=== PATIENT | female | born 1965 | race Caucasian/White ===

== ENCOUNTER 2019-09-01 21:03 | Inpatient (IN) | payer OTHER ==
--- NOTE | 2019-09-01 21:28 | PDOC ---
Rapid Medical Evaluation Chief Complaint: CVA/TIA Time Seen by Provider: 09/01/19 21:08 Medical Evaluation: Allergies Allergy/AdvReac Type Severity Reaction Status Date / Time No Known Allergies Allergy Verified 08/26/14 13:17 Vital Signs Temp Pulse Resp BP Pulse Ox 98 F 100 H 20 124/82 98 09/01/19 21:13 09/01/19 21:13 09/01/19 21:13 09/01/19 21:13 09/01/19 21:13 09/01/19 21:27 I have performed a brief in-person evaluation of this patient. The patient presents with a chief complaint of:R arm weakness x 3 days. H/o HTN, HLD, DM Pertinent physical exam findings:stable I have ordered the following:CTH/labs The patient will proceed to the ED for further evaluation. Discharge Disposition - Diagnosis Arm weakness - Discharge Dispostion Last Admission D/C Date: 04/19/08 - Referrals Referrals: Ela Hernandez [Primary Care Provider] - - Patient Instructions - Post Discharge Activity
--- NOTE | 2019-09-01 21:51 | PDOC ---
History of Present Illness - General Chief Complaint: CVA/TIA Stated Complaint: R/ARM/WEAKNES/SACRAL PAIN Time Seen by Provider: 09/01/19 21:08 Past History - Medical History Allergies/Adverse Reactions: Allergies Allergy/AdvReac Type Severity Reaction Status Date / Time No Known Allergies Allergy Verified 08/26/14 13:17 Home Medications: Ambulatory Orders Lipase/Protease/Amylase [Liliana Weston 24,000 Units Capsule] 1 cap PO TID 08/26/14 Loratadine [Claritin -] 10 mg PO DAILY 08/26/14 Lubiprostone [Amitiza] 8 mcg PO BID 08/26/14 metFORMIN HCL [Metformin ER Osmotic] 1 tab PO DAILY 08/26/14 metroNIDAZOLE [Flagyl -] 250 mg PO TID 08/26/14 Anemia: No Asthma: No Cancer: No Cardiac Disorders: No CVA: No COPD: Yes (???-SOB ON EXERTION) CHF: No Dementia: No Diabetes: Yes (IDDM) GI Disorders: Yes (HIATAL HERNIA??) Disorders: No HTN: No Hypercholesterolemia: Yes Liver Disease: No Seizures: No Thyroid Disease: No - Surgical History Abdominal Surgery: No Appendectomy: No Cardiac Surgery: No Cholecystectomy: No Lung Surgery: No Neurologic Surgery: No Orthopedic Surgery: No - Psycho-Social/Smoking History Smoking History: Never smoked Have you smoked in the past 12 months: No - Substance Abuse Hx (Audit-C & DAST Scrn) How often the patient has a drink containing alcohol: Never Score: In Men: 4 or > Positive; In Women: 3 or > Positive: 0 Screen Result (Pos requires Nsg. Audit-10AR): Negative *Physical Exam - Vital Signs Last Vital Signs Temp Pulse Resp BP Pulse Ox 98 F 100 H 20 124/82 98 09/01/19 21:13 09/01/19 21:13 09/01/19 21:13 09/01/19 21:13 09/01/19 21:13 ED Treatment Course - LABORATORY CBC & Chemistry Diagram: 09/01/19 22:08 09/01/19 22:08 Medical Decision Making - Medical Decision Making 09/01/19 21:54 HPI: 53yo F hx HTN, HLD, "pressure behind eyes", and DM presents from home for 3 days of gradual onset worsening shooting forearm pain worse with movements, atraumatic, no associated neck pain, no hx similar sx. Also c/o worsening acute on chronic LBP with hx 3 herniated discs, gradual onset, worse with movement and walking, no trauma or heavy lifting. Endorses chronic headaches, L-sided, unchanged. No pain meds tried. Denies trauma, falls, heavy lifting, numbness/tingling, vision changes, urinary or stool incontinence, saddle anaesthesia, fever, chills, rash. PCP - [facility] ROS: Constitutional: Negative for chills, fever, fatigue, diaphoresis. HENT: Negative for sore throat, rhinorrhea, congestion. Eyes: Negative for visual disturbance. Respiratory: Negative for shortness of breath, cough, and wheezing. Cardiovascular: Negative for chest pain, palpitations, and leg swelling. Gastrointestinal: Negative for abdominal pain, blood in stool, constipation, diarrhea, nausea, and vomiting. Genitourinary: Negative for dysuria, flank pain, and hematuria. Musculoskeletal: Positive for RUE pain, LBP. Negative for myalgias and neck pain. Skin: Negative for rash. Neurological: Positive for headaches, RUE weakness. Negative for light- headedness, dizziness, vertigo, syncope, numbness. Psychiatric/Behavioral: Negative for behavioral problems and confusion. PE: Gen: Alert, NAD, comfortable-appearing. HEENT: PERRL, EOMI, MMM, NCAT. No conjunctival pallor. Sclera are non-icteric. Neck supple, nontender, full ROM. CV: Regular rate and rhythm. No murmurs, rubs, or gallops. PULM: No resp distress. CTAB, no wheezes, rales, or rhonchi. ABD: soft, NT/ND, no rebound tenderness or guarding, no CVA tenderness. BACK: +midline l-spine TTP. No TTP of c/t-spine. No step-offs or deformities. MSK: No bony deformities. 2+ pulses in all extremities. NEURO: AAOx3. PERRL. CN 2-12 intact. 4/5 strength RUE/RLE (difficult to assess due to pain), 5/5 strength in LUE/LLE. Sensation to light touch intact in all extremities. No pronator drift. No dysmetria. No dysdiadochokinesia. No abnormal nystagmus. Normal gait. No facial droop or slurred speech. EXTREMITIES: No cyanosis. No clubbing. No edema. No calf tenderness. No TTP along long bones or joints, full ROM of joints, SILT throughout all distributions, soft compartments. +straight leg test. +worsening forearm pain with wrist extension. PSYCH: Normal mood and thought pattern. SKIN: Warm and dry. Normal capillary refill. No rashes. No jaundice. MDM: 53yo F hx HTN, HLD, "pressure behind eyes", and DM presents from home for 3 days of gradual onset worsening shooting forearm pain worse with movements, atraumatic, no associated neck pain, and worsening acute on chronic LBP with hx 3 herniated discs. Hemodynamically stable, afebrile, 4/5 strength RUE/RLE (possibly 2/2 pain), otherwise neurologically intact. Ddx: herniated disc, sciatica, carpal tunnel, radiculopathy, infection, metabolic derangement, anemia, fx, dislocation/subluxation, ICH/stroke. No red flags concerning for cauda equina/cord compression. -EKG -CTH/c/t/l-spine -CBC,CMP,Cardiac profile -Pain management -Dispo: pending workup and reassessment, likely d/c home 09/01/19 23:41 Labs reviewed: WBC 13.7, no other concerning findings EKG reviewed: NSR, 96bpm, QTc 459ms, low voltage QRS, no e/o acute ischemia Upon reassessment, RLE 5/5 strength, RUE 4+/5 strength, pain improved. Signed out to night team, pending CT reads, admit for MRI and neurology. Discharge - Discharge Information Problems reviewed: Yes Clinical Impression/Diagnosis: Arm weakness, Lower back pain Condition: Stable - Admission Yes - Follow up/Referral Referrals: Ela Hernandez [Primary Care Provider] - - Patient Discharge Instructions - Post Discharge Activity
[2019-09-01] MEDS ORDERED: ACETAMINOPHEN 1000 MG/100 ML VIAL (NON FORMULARY) IVPB ONE (21:55)
[2019-09-01] MEDS ORDERED: KETOROLAC TROMETHAMINE 15 MG/ML VIAL IVPUSH ONE (21:59)
[2019-09-01] MEDS ORDERED: LIDOCAINE 5% TOPICAL PATCH TP ONE (21:59)
[2019-09-01] MEDS ORDERED: ACETAMINOPHEN INJECTION 100 ML IVPB ONE (22:09)
[2019-09-01] MEDS ORDERED: KETOROLAC TROMETHAMINE 15 MG/ML VIAL ONE (22:10)
[2019-09-01] MEDS ORDERED: LIDOCAINE 5% TOPICAL PATCH ONE (22:10)
[2019-09-01 22:15] LABS: BASO % 0.6 % (0-2.0); EOS % 0.7 % (0-4.5); HEMATOCRIT 42.4 % (32.4-45.2); HEMOGLOBIN 13.6 GM/dL (10.7-15.3); LYMPH % 26.7 % (8-40); MCH 27.3 pg (25.7-33.7); MCHC 32.1 g/dl (32.0-36.0); MEAN PLT VOLUME 9.3 fl (7.5-11.1); MONO % 5.2 % (3.8-10.2); NEUT % 66.8 % (42.8-82.8); PLATELET COUNT 287 K/MM3 (134-434); RBC 4.99 M/mm3 (3.60-5.2); RDW 14.1 % (11.6-15.6); WHITE BLOOD COUNT 13.7 K/mm3 (4.0-10.0)
[2019-09-01] MEDS ORDERED: METHOCARBAMOL 500 MG TABLET PO ONE (22:37)
[2019-09-01 22:54] LABS: ALBUMIN 3.9 g/dl (3.4-5.0); ALK PHOS 75 U/L (45-117); ANION GAP 11 MMOL/L (8-16); BILIRUBIN,TOTAL 0.3 mg/dL (0.2-1); BLOOD UREA NITROGEN 15.9 mg/dL (7-18); CALCIUM 9.7 mg/dL (8.5-10.1); CHLORIDE 100 mmol/L (98-107); CO2 26 mmol/L (21-32); CREATININE 0.8 mg/dL (0.55-1.3); GLUCOSE,RANDOM 165 mg/dL (74-106); POTASSIUM 4.2 mmol/L (3.5-5.1); SGOT/AST 12 U/L (15-37); SGPT/ALT 42 U/L (13-61); SODIUM 137 mmol/L (136-145); TOT PROT 8.2 g/dl (6.4-8.2)
[2019-09-01] MEDS ORDERED: METHOCARBAMOL 500 MG TABLET ONE (23:30)
--- NOTE | 2019-09-02 00:15 | PDOC ---
*Physical Exam - Vital Signs Last Vital Signs Temp Pulse Resp BP Pulse Ox 98 F 95 H 20 124/82 96 09/01/19 21:13 09/01/19 21:25 09/01/19 21:13 09/01/19 21:13 09/01/19 21:25 ED Treatment Course - LABORATORY CBC & Chemistry Diagram: 09/01/19 22:08 09/01/19 22:08 - ADDITIONAL ORDERS Additional order review: Laboratory Results 09/01/19 22:08 Sodium 137 Potassium 4.2 Chloride 100 Carbon Dioxide 26 Anion Gap 11 BUN 15.9 Creatinine 0.8 Est GFR (CKD-EPI)AfAm 96.87 Est GFR (CKD-EPI)NonAf 83.58 Random Glucose 165 H Calcium 9.7 Total Bilirubin 0.3 AST 12 L ALT 42 Alkaline Phosphatase 75 Creatine Kinase 138 Troponin I < 0.02 Total Protein 8.2 Albumin 3.9 TSH 2.53 09/01/19 22:08 RBC 4.99 MCV 85.0 MCHC 32.1 RDW 14.1 MPV 9.3 Neutrophils % 66.8 Lymphocytes % 26.7 Monocytes % 5.2 Eosinophils % 0.7 Basophils % 0.6 - Medications Given in the ED: ED Medications Discontinued Medications Generic Name Dose Route Start Last Admin Trade Name Freq PRN Reason Stop Dose Admin Acetaminophen 1,000 mg 09/01/19 21:55 09/01/19 22:24 Ofirmev Injection - IVPB 09/01/19 21:56 1,000 mg ONCE ONE Administration Ketorolac Tromethamine 15 mg 09/01/19 21:59 09/01/19 22:25 Toradol Injection - IVPUSH 09/01/19 22:00 15 mg ONCE ONE Administration Lidocaine 1 patch 09/01/19 21:59 09/01/19 22:25 Lidoderm Patch - TP 09/01/19 22:00 1 patch ONCE ONE Administration Methocarbamol 1,000 mg 09/01/19 22:37 09/01/19 23:38 Robaxin - PO 09/01/19 22:38 1,000 mg ONCE ONE Administration Medical Decision Making - Medical Decision Making 09/02/19 01:11 CT Scan of the head showed no acute pathology CT scan of the neck showed moderate central narrowing at C3-4, C5-6 due to disc hernia CT scan of the Lumbar spines showed mild bilateral neural mcleod at L4-5 due to disc buldge. Small central L5-S1 , no mass effect. MBMD was sent Discharge - Discharge Information Problems reviewed: Yes Clinical Impression/Diagnosis: Arm weakness, Spinal stenosis Lower back pain Qualifiers: Chronicity: chronic Back pain laterality: midline Sciatica presence: with sciatica Sciatica laterality: sciatica of left side Qualified Code(s): M54.42 - Lumbago with sciatica, left side; G89.29 - Other chronic pain Condition: Stable - Admission Yes - Follow up/Referral Referrals: Ela Hernandez [Primary Care Provider] - - Patient Discharge Instructions - Post Discharge Activity
[2019-09-02] MEDS ORDERED: DEXAMETHASONE SOD PHOSPHATE 10 MG/1 ML VIAL IVPUSH ONE (00:23)
[2019-09-02] MEDS ORDERED: DEXAMETHASONE SOD PHOSPHATE 10 MG/1 ML VIAL ONE (00:43)
--- NOTE | 2019-09-02 00:51 | PDOC ---
Documentation entered by Thi Saldaña SCRIBE, acting as scribe for Denise Sotelo MD. Denise Sotelo MD: This documentation has been prepared by the missyibePiotr Sydney, SCRIBE, under my direction and personally reviewed by me in its entirety. I confirm that the documentation accurately reflects all work, treatment, procedures, and medical decision making performed by me. Attending Attestation - Resident Resident Name: Elidia Phelan - ED Attending Attestation I have performed the following: I have examined & evaluated the patient, The case was reviewed & discussed with the resident, I agree w/resident's findings & plan, Exceptions are as noted - HPI HPI: 09/01/19 23:01 Patient is a 53 year old female with a significant past medical history of chronic back pain, HTN, HLD, DM who presents to the ED with three days of worsening right forearm pain and weakness. As per patient, she noticed today that she was unable to life her coffee cup with her right hand secondary to pain. She endorses her pain is exacerbated with movement, but she has not taken any medications for her symptoms. Patient also notes some acute chronic back pain secondary to a fall backwards onto her butt two weeks ago. Denies fever, chills, nausea, vomiting, diarrhea, or constipation. Denies urinary changes. Allergies: NKDA PCP: Dr. Hernandez - Physicial Exam PE: 09/02/19 00:49 GENERAL: Well-appearing, well-nourished. No apparent distress. HEENT: Normocephalic, atraumatic. PERRL, EOM intact. CARDIOVASCULAR: Normal S1, S2. Regular rate and rhythm. PULMONARY: Clear to auscultation bilaterally. ABDOMEN: Soft, non-distended, non-tender. EXTREMITIES: Normal ROM in all four extremities. No gross deformities. SKIN: Warm, dry. No rash NEUROLOGICAL: No focal neurological deficits. - Medical Decision Making 09/01/19 23:04 Pt's cbc is slightly elevated; chem is normal heart enzymes normal 09/02/19 00:00 TSH normal 09/02/19 01:08 Patient Name: NOEL ZIEGLER THIS IS A PRELIMINARY REPORT FROM [facility] DATE OF SERVICE: 2019-09-01 23:11:07 IMAGES: 290 EXAM: HEAD CT WITHOUT CONTRAST HISTORY: Right arm weakness COMPARISON: None. FINDINGS: The ventricular system is midline and nondilated. The sulcal pattern is normal for the patient's age. There is no bleed, mass, extra-axial fluid collection or mass effect. An empty sella is noted. No skull fracture or skull lesion is identified. The visualized paranasal sinuses and mastoid air cells are clear. IMPRESSION: No evidence of acute pathology. 09/02/19 03:49 Pt will be admitted for MRI of cspine, as she has moderate spinal cANAL STENOSIS, WHITH RESULTING WEAKNESS IN THE DOMINANT RIGHT ARM Heart Score/ECG Review - ECG Intrepretation Rhythm: Regular Rhythm - [place]: Normal - P and [place] Prominent R with upright T in V1 (true posterior [place]): No Delta Wave(s) Present: No WPW: No - QRS Poor R Wave Progression: No Q Wave Present: No - ST and T Early Repolarization: No Non Specific ST-T Wave changes: No Flattened T Waves: No Prolonged Q-T Interval: No - ECG Impressions Normal ECG: Yes Non-specific ST Elevation: No Ischemic Changes: No Bradycardia: No Torsades romeo Pointes: No WPW: No Discharge - Discharge Information Problems reviewed: Yes Clinical Impression/Diagnosis: Arm weakness, Spinal stenosis Lower back pain Qualifiers: Chronicity: chronic Back pain laterality: midline Sciatica presence: with sciatica Sciatica laterality: sciatica of left side Qualified Code(s): M54.42 - Lumbago with sciatica, left side Condition: Stable - Follow up/Referral - Patient Discharge Instructions - Post Discharge Activity
[2019-09-02] MEDS ORDERED: ARTIFICIAL TEARS (POLYVINYL ALCOHOL) OPTH DROPS OU ONE (01:34)
--- NOTE | 2019-09-02 02:47 | PN ---
Teaching Attending Note Name of Resident: Prashanth Radford ATTENDING PHYSICIAN STATEMENT I saw and evaluated the patient. I reviewed the resident's note and discussed the case with the resident. I agree with the resident's findings and plan as documented. SUBJECTIVE: Patient is a 53 year old woman with a PMH of Chronic back pain, Herniated discs, HTN, HLD and NIDDM who presents to the ER with three days of worsening right forearm pain and weakness. As per patient, she noticed today that she was unable to lift her coffee cup with her right hand secondary to pain. She endorses her pain is exacerbated with movement, but she has not taken any medications for her symptoms. Patient also notes some acute chronic back pain secondary to a fall ba ckwards onto her buttocks two weeks ago. Patient denies chest pain, shortness of breath, abdominal pain, headache, palpitations, dizziness, fever, chills, nausea, vomiting, diarrhea, constipation, dysuria, frequency, urgency, melena, hematochezia or hematuria. Denies alcohol, tobacco or illicit drug use. No sick contacts or recent travels. Family history is unremarkable. OBJECTIVE: Alert Vital Signs Period Temp Pulse Resp BP Sys/Moreno Pulse Ox Last 24 Hr 98 F-98.4 F 88-100 19-20 112-124/71-82 96-98 HEENT: No Jaundice, eye redness or discharge, PERRLA, EOMI. Normocephalic, atraumatic. External ears are normal and hearing is grossly intact. No nasal discharge. Neck: Supple, C spine tenderness. No palpable adenopathy or thyromegaly. No JVD Chest: Good effort. Clear to auscultation and percussion. Heart: Regular. No S3, rub or murmur Abdomen: Not distended, soft, nontender and no HSM. No rebound or guarding. Normal bowel sounds. Ext: Peripheral pulses intact. Limited ROM of RUE and pain on movement of RUE. No leg edema. Skin: Warm and dry. No petechiae, rash or ecchymosis. Neuro: Alert. Oriented x3. CN 2-12 grossly intact. Sensation grossly intact in all four extremities and DTR are symmetric. Psych: Appropriate mood and affect. Good insight. Current Medications Generic Name Dose Route Start Last Admin Trade Name Freq PRN Reason Stop Dose Admin Miscellaneous 1 each 09/01/19 22:00 Lidoderm Patch Removal DAILY@2200 [facility] Home Medications Medication Instructions Recorded Lipase/Protease/Amylase [Creon Dr 1 cap PO TID 08/26/14 24,000 Units Capsule] Loratadine [Claritin -] 10 mg PO DAILY 08/26/14 Lubiprostone [Amitiza] 8 mcg PO BID 08/26/14 metFORMIN HCL [Metformin ER 1 tab PO DAILY 08/26/14 Osmotic] metroNIDAZOLE [Flagyl -] 250 mg PO TID 08/26/14 Abnormal Lab Results 09/01/19 09/01/19 22:08 22:08 WBC 13.7 H Absolute Neuts (auto) 9.1 H Random Glucose 165 H AST 12 L Current Medications Generic Name Dose Route Start Last Admin Trade Name Freq PRN Reason Stop Dose Admin Docusate Sodium 100 mg 09/02/19 10:00 Colace - PO BID [facility] Enoxaparin Sodium 40 mg 09/02/19 10:00 Lovenox - SQ DAILY [facility] Insulin Aspart 1 vial 09/02/19 07:00 Novolog Vial Sliding Scale - SQ ACHS [facility] Protocol Ketorolac Tromethamine 15 mg 09/02/19 04:05 Toradol PO 09/07/19 05:59 Q6HPO PRN PAIN LEVEL 7 - 10 Miscellaneous 1 each 09/01/19 22:00 Lidoderm Patch Removal DAILY@2200 [facility] Oxycodone HCl 10 mg 09/02/19 04:15 Oxycontin - PO 09/03/19 04:14 BID [facility] ASSESSMENT AND PLAN: 1. RUE weakness -May be due to cervical radiculopathy. CT scan of the neck showed moderate central narrowing at C3-4, C5-6 due to disc hernia. CT scan of the Lumbar spine showed mild bilateral neural mcleod at L4-5 due to disc buldge. Small central L5-S1, no mass effect. CT scan of the head showed no acute intracranial pathology. Will get MRI of C-spine and consult Neurology, PT and Neurosurgery. Leukocytosis may be due to stress, but CXR and urinalysis are pending. Viral testing for COVID-19 ordered and patient placed on airborne, droplet and contact isolation. ER staff prescribed Tylenol, Robaxin, Toradol, Decadron, Lidocaine patch and Artificial tears for the patient. Will give Oxycontin and use IV Toradol for breakthrough pain; Flexeril, IV NS, soft cervical collar and provide a bowel regimen. EKG shows NSR at 96/minute and QTc [address]-T wave changes. Initial troponin is negative. Will continue comprehensive care for all of patients comorbid conditions. 2. Uncontrolled DM For now, we will hold the home diabetes drugs and implement sliding scale insulin regimen. Provide comprehensive diabetes care with patient teaching and counseling about the importance of adherence to prescribed diabetes regimen, euglycemia, eye care and foot care. 3. Obesity Counseled on the risks associated with obesity. Will provide patient all the necessary assistance, counseling and positive reinforcement to facilitate weight loss. Consult staff anesthetist. 4. Hypertension Not on an ACEI or ARB. Will get urine protein/creatinine ratio. Patient counseled on the injurious effects of uncontrolled hypertension. Nonpharmacologic measures to control hypertension like weight loss, salt restriction and exercise stressed. Importance of adherence to treatment regimen and attainment of normotension emphasized. 5. DVT prophylaxis - Lovenox 40 mg SQ q 24 hours. 6. Advance directives - Full code
[2019-09-02] MEDS ORDERED: oxyCODONE HCL 10 MG SUSTAINED ACTING TABLET PO ONE (03:59)
[2019-09-02] MEDS ORDERED: KETOROLAC TROMETHAMINE 10 MG TABLET PO PRN (04:05)
[2019-09-02] MEDS ORDERED: oxyCODONE HCL 10 MG SUSTAINED ACTING TABLET ONE ×2 (05:37→23:00)
[2019-09-02] MEDS: oxyCODONE HCL 10 MG SUSTAINED ACTING TABLET PO SCH ×2 (05:45→23:07)
--- NOTE | 2019-09-02 06:46 | HP ---
CHIEF COMPLAINT: Right upper extremity pain, weakness, and numbness. PCP: [facility] pain, weakness, and numbness HISTORY OF PRESENT ILLNESS: 53 year old female patient with past medical history that includes HTN, HLD, DM, herniated discs, and chronic back pain, who presented to the ED with right upper extremity pain, weakness, and numbness for 3 days. It has progressed to the point that it is hard for her to hold things or lift things with her right upper extremity. The symptoms are in her whole right arm and hand. Abduction of her arm upwards causes radiculopathy, and palpation of her mid-cervical, mid- thoracic, and mid-lumbar areas of her spine causes her to jump up in pain. The patient also has a positive right straight leg test, although the patient reports less numbness in her right leg compared to her arm, and no symptoms of pain in her right leg. Recent Travel: PAST MEDICAL HISTORY: HTN, HLD, DM, herniated discs, and chronic back pain PAST SURGICAL HISTORY: Social History: Smoking: Alcohol: Drugs: Allergies No Known Allergies Allergy (Verified 08/26/14 13:17) HOME MEDICATIONS: Home Medications Medication Instructions Recorded Lipase/Protease/Amylase [Creon Dr 1 cap PO TID 08/26/14 24,000 Units Capsule] Loratadine [Claritin -] 10 mg PO DAILY 08/26/14 Lubiprostone [Amitiza] 8 mcg PO BID 08/26/14 metFORMIN HCL [Metformin ER 1 tab PO DAILY 08/26/14 Osmotic] metroNIDAZOLE [Flagyl -] 250 mg PO TID 08/26/14 REVIEW OF SYSTEMS CONSTITUTIONAL: Absent: fever, chills CARDIOVASCULAR: Absent: chest pain RESPIRATORY: Absent: shortness of breath GASTROINTESTINAL: abdominal pain on palpation Absent: nausea, vomiting, diarrhea NEUROLOGIC: numbness, weakness, and pain in her right upper extremity. numbness in her right lower extremity. Absent: PHYSICAL EXAMINATION Vital Signs - 24 hr 09/01/19 09/01/19 09/02/19 21:13 21:25 02:00 Temperature 98 F 98.2 F 98.4 F Pulse Rate 100 H 95 H Pulse Rate [ 95 H 88 Radial] Respiratory Rate Blood Pressure 124/82 Blood Pressure 136/90 112/71 [Left Arm] O2 Sat by Pulse 98 96 98 Oximetry (%) 07/19/20 04:09 Temperature 98.4 F Pulse Rate Pulse Rate [ 82 Radial] Respiratory 15 Rate Blood Pressure Blood Pressure 106/68 [Left Arm] O2 Sat by Pulse 98 Oximetry (%) GENERAL: Awake, alert, and fully oriented, in no acute distress. HEAD: Normal with no signs of trauma. EYES: Extraocular movements intact. No lid lag. EARS, NOSE, THROAT: Ears normal, nares patent, oropharynx clear without exudates. Moist mucous membranes. NECK: Normal range of motion, supple without lymphadenopathy, JVD, or masses. LUNGS: Breath sounds equal, clear to auscultation bilaterally. No wheezes, and no crackles. No accessory muscle use. HEART: Regular rate and rhythm, normal S1 and S2 without murmur, rub or gallop. ABDOMEN: Soft, mildly tender to palpation, not distended, normoactive bowel sounds, no guarding, no rebound, no masses. UPPER EXTREMITIES: 2+ pulses, warm, well-perfused. No cyanosis. No clubbing. No peripheral edema. Radiculopathy down right upper extremity when right arm is abducted upwards. Right upper extremity with partial numbness. +4/5 right arm muscle strength. LOWER EXTREMITIES: 2+ pulses, warm, well-perfused. No calf tenderness. No peripheral edema. Right lower extremity with partial numbness less than right upper extremity. + right straight leg test. NEUROLOGICAL: Normal speech. Normal gait. PSYCHIATRIC: Cooperative. Good eye contact. Appropriate mood and affect. SKIN: Warm, dry, normal turgor, no rashes or lesions noted, normal capillary refill. Laboratory Results - last 24 hr 09/01/19 09/01/19 22:08 22:08 WBC 13.7 H RBC 4.99 Hgb 13.6 Hct 42.4 MCV 85.0 MCH 27.3 MCHC 32.1 RDW 14.1 Plt Count 287 MPV 9.3 Absolute Neuts (auto) 9.1 H Neutrophils % 66.8 Lymphocytes % 26.7 Monocytes % 5.2 Eosinophils % 0.7 Basophils % 0.6 Nucleated RBC % 0 Sodium 137 Potassium 4.2 Chloride 100 Carbon Dioxide 26 Anion Gap 11 BUN 15.9 Creatinine 0.8 Est GFR (CKD-EPI)AfAm 96.87 Est GFR (CKD-EPI)NonAf 83.58 Random Glucose 165 H Calcium 9.7 Total Bilirubin 0.3 AST 12 L ALT 42 Alkaline Phosphatase 75 Creatine Kinase 138 Troponin I < 0.02 Total Protein 8.2 Albumin 3.9 TSH 2.53 ASSESSMENT/PLAN: 53 year old female patient with past medical history that includes HTN, HLD, DM, herniated discs, and chronic back pain, who presented to the ED with right upper extremity pain, weakness, and numbness for 3 days. 1. Right upper extremity pain, weakness, and numbness likely secondary to cervical radiculopathy. - CT scan showed moderate central narrowing at C3-4, C5-6 due to a disc hernia. - MRI - Consult Neurology and Neurosurgery - Physical Therapy 2. Leukocytosis possibly secondary to stress - Increased WBC of 13.7 - afebrile - CXR - Urinalysis 3. Obesity - BMI > 30 - Consult Manager Of Internal Audit 4. DM - Novolog Sliding Scale DVT PPx - Lovenox 40mg SQ FULL CODE Visit type - Emergency Visit Emergency Visit: Yes ED Registration Date: 09/02/19 Care time: The patient presented to the Emergency Department on the above date and was hospitalized for further evaluation of their emergent condition. - New Patient This patient is new to me today: Yes Date on this admission: 09/02/19 - Critical Care Critical Care patient: No ATTENDING PHYSICIAN STATEMENT I saw and evaluated the patient. I reviewed the resident's note and discussed the case with the resident. I agree with the resident's findings and plan as documented. SUBJECTIVE: OBJECTIVE: ASSESSMENT AND PLAN:
[2019-09-02 07:17] LABS: HEMATOCRIT 41.3 % (32.4-45.2); HEMOGLOBIN 13.2 GM/dL (10.7-15.3); MCH 27.5 pg (25.7-33.7); MEAN CELL VOLUME 85.7 fl (80-96); MEAN PLT VOLUME 9.4 fl (7.5-11.1); PLATELET COUNT 281 K/MM3 (134-434); RBC 4.82 M/mm3 (3.60-5.2); RDW 14.3 % (11.6-15.6); WHITE BLOOD COUNT 9.9 K/mm3 (4.0-10.0)
[2019-09-02] MEDS: INSULIN SLIDING SCALE (NOVOLOG) 1 VIAL SQ SCH ×4 (07:19→23:09)
[2019-09-02 07:39] LABS: MAGNESIUM 2.2 mg/dL (1.8-2.4); PHOSPHOROUS 3.3 mg/dL (2.5-4.9)
[2019-09-02] MEDS ORDERED: ENOXAPARIN NA (PORCINE) 40 MG/0.4 ML DISP.SYRIN SQ ONE (09:03)
[2019-09-02] MEDS ORDERED: DOCUSATE SODIUM 100 MG CAPSULE (FP) PO ONE ×2 (09:03→22:57)
[2019-09-02] MEDS: ENOXAPARIN NA (PORCINE) 40 MG/0.4 ML DISP.SYRIN SQ SCH (09:21)
[2019-09-02] MEDS: DOCUSATE SODIUM 100 MG CAPSULE (FP) PO SCH ×2 (09:21→23:07)
[2019-09-02 09:40] LABS: EPI CELLS >36 /uL (0-25.1); HYALINE CASTS 4 /uL (0-3.1); URINE APPEARANCE CLOUDY; URINE BACTERIA 5664 /uL (0-1359); URINE BILIRUBIN NEGATIVE (NEGATIVE); URINE COLOR YELLOW; URINE GLUCOSE (UA) 3+ (NEGATIVE); URINE KETONE NEGATIVE (NEGATIVE); URINE LEUK ESTERASE 2+ (NEGATIVE); URINE NITRITE NEGATIVE (NEGATIVE); URINE PROTEIN NEGATIVE (NEGATIVE); URINE RBC 13 /uL (0-23.9); URINE UROBILINOGEN 0.2 mg/dL (0.2-1.0); URINE WBC 727 /uL (0-25.8)
[2019-09-02] MEDS ORDERED: INSULIN SLIDING SCALE (NOVOLOG) 1 VIAL SQ ONE ×3 (12:39→22:59)
--- NOTE | 2019-09-02 15:52 | PN ---
Physical Exam: 53 year old female patient with past medical history that includes HTN, HLD, DM, herniated discs, and chronic back pain, who presented to the ED with right upper extremity pain SUBJECTIVE: Patient seen and examined, not in acute distress OBJECTIVE: Vital Signs Period Temp Pulse Resp BP Sys/Moreno Pulse Ox Last 24 Hr 98 F-98.4 F 73-100 15-20 103-136/67-90 96-98 GENERAL: The patient is awake, alert, and fully oriented, in no acute distress. HEAD: Normal with no signs of trauma. EYES: PERRL, extraocular movements intact, sclera anicteric, conjunctiva clear. No ptosis. ENT: Ears normal, nares patent, oropharynx clear without exudates, moist mucous membranes. NECK: Trachea midline, full range of motion, supple. LUNGS: Breath sounds equal, clear to auscultation bilaterally, no wheezes, no crackles, no accessory muscle use. HEART: Regular rate and rhythm, S1, S2 without murmur, rub or gallop. ABDOMEN: obese, Soft, nontender, nondistended, normoactive bowel sounds, no guarding, no rebound, no hepatosplenomegaly, no masses. EXTREMITIES: 2+ pulses, warm, well-perfused, no edema. NEUROLOGICAL: Cranial nerves II through XII grossly intact. Normal speech, gait not observed. 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 LE 5/5 strength PSYCH: Normal mood, normal affect. SKIN: Warm, dry, normal turgor, no rashes or lesions noted Laboratory Results - last 24 hr 09/01/19 09/01/19 09/02/19 22:08 22:08 06:01 WBC 13.7 H 9.9 RBC 4.99 4.82 Hgb 13.6 13.2 Hct 42.4 41.3 MCV 85.0 85.7 MCH 27.3 27.5 MCHC 32.1 32.0 RDW 14.1 14.3 Plt Count 287 281 MPV 9.3 9.4 Absolute Neuts (auto) 9.1 H Neutrophils % 66.8 Lymphocytes % 26.7 Monocytes % 5.2 Eosinophils % 0.7 Basophils % 0.6 Nucleated RBC % 0 Sodium 137 Potassium 4.2 Chloride 100 Carbon Dioxide 26 Anion Gap 11 BUN 15.9 Creatinine 0.8 Est GFR (CKD-EPI)AfAm 96.87 Est GFR (CKD-EPI)NonAf 83.58 POC Glucometer Random Glucose 165 H Calcium 9.7 Phosphorus Magnesium Total Bilirubin 0.3 AST 12 L ALT 42 Alkaline Phosphatase 75 Creatine Kinase 138 Troponin I < 0.02 Total Protein 8.2 Albumin 3.9 TSH 2.53 Urine Color Urine Appearance Urine pH Ur Specific [place] Urine Protein Urine Glucose (UA) Urine Ketones Urine Blood Urine Nitrite Urine Bilirubin Urine Urobilinogen Ur Leukocyte Esterase Urine WBC (Auto) Urine RBC (Auto) Urine Casts (Auto) U Epithel Cells (Auto) Urine Bacteria (Auto) Ur Random Creatinine U Random Total Protein Protein/Creatinin Ratio 09/02/19 09/02/19 09/02/19 06:01 06:42 07:45 WBC RBC Hgb Hct MCV MCH MCHC RDW Plt Count MPV Absolute Neuts (auto) Neutrophils % Lymphocytes % Monocytes % Eosinophils % Basophils % Nucleated RBC % Sodium Potassium Chloride Carbon Dioxide Anion Gap BUN Creatinine Est GFR (CKD-EPI)AfAm Est GFR (CKD-EPI)NonAf POC Glucometer 356 Random Glucose Calcium Phosphorus 3.3 Magnesium 2.2 Total Bilirubin AST ALT Alkaline Phosphatase Creatine Kinase Troponin I Total Protein Albumin TSH Urine Color Yellow Urine Appearance Cloudy Urine pH 5.0 Ur Specific [place] 1.018 Urine Protein Negative Urine Glucose (UA) 3+ H Urine Ketones Negative Urine Blood Trace Urine Nitrite Negative Urine Bilirubin Negative Urine Urobilinogen 0.2 Ur Leukocyte Esterase 2+ H Urine WBC (Auto) 727 Urine RBC (Auto) 13 Urine Casts (Auto) 4 U Epithel Cells (Auto) >36 Urine Bacteria (Auto) 5664 Ur Random Creatinine U Random Total Protein Protein/Creatinin Ratio 09/02/19 09/02/19 07:45 12:56 WBC RBC Hgb Hct MCV MCH MCHC RDW Plt Count MPV Absolute Neuts (auto) Neutrophils % Lymphocytes % Monocytes % Eosinophils % Basophils % Nucleated RBC % Sodium Potassium Chloride Carbon Dioxide Anion Gap BUN Creatinine Est GFR (CKD-EPI)AfAm Est GFR (CKD-EPI)NonAf POC Glucometer 333 Random Glucose Calcium Phosphorus Magnesium Total Bilirubin AST ALT Alkaline Phosphatase Creatine Kinase Troponin I Total Protein Albumin TSH Urine Color Urine Appearance Urine pH Ur Specific [place] Urine Protein Urine Glucose (UA) Urine Ketones Urine Blood Urine Nitrite Urine Bilirubin Urine Urobilinogen Ur Leukocyte Esterase Urine WBC (Auto) Urine RBC (Auto) Urine Casts (Auto) U Epithel Cells (Auto) Urine Bacteria (Auto) Ur Random Creatinine 44.0 U Random Total Protein 8.7 Protein/Creatinin Ratio 0.2 Active Medications Generic Name Dose Route Start Last Admin Trade Name Freq PRN Reason Stop Dose Admin Docusate Sodium 100 mg 09/02/19 10:00 09/02/19 09:21 Colace - PO 100 mg BID TIBURCIO Administration Enoxaparin Sodium 40 mg 09/02/19 10:00 09/02/19 09:21 Lovenox - SQ 40 mg DAILY TIBURCIO Administration Insulin Aspart 1 vial 09/02/19 07:00 09/02/19 13:01 Novolog Vial Sliding Scale - SQ 8 units ACHS TIBURCIO Administration Protocol Insulin Detemir 8 units 09/02/19 22:00 Levemir Vial SQ HS TIBURCIO Ketorolac Tromethamine 15 mg 09/02/19 04:05 Toradol PO 09/07/19 05:59 Q6HPO PRN PAIN LEVEL 7 - 10 Miscellaneous 1 each 09/01/19 22:00 Lidoderm Patch Removal MC DAILY@2200 TIBURCIO Oxycodone HCl 10 mg 09/02/19 04:15 09/02/19 05:45 Oxycontin - PO 09/03/19 04:14 10 mg BID TIBURCIO Administration ASSESSMENT/PLAN: # Right hand, weakness, and numbness -causes: cervical radiculopathy vs carpal tunnel syndrome - CT scan showed moderate central narrowing at C3-4, C5-6 due to a disc hernia. - MRI - Consult Neurology - Physical Therapy, wrist splinting #Obesity - BMI > 30 - Consult Discharge Rn, qualifies for briatric surgery # DM - Novolog Sliding Scale + levemir 8u HS for now and titrate for BG 140-180 while in hospital DVT PPx - Lovenox 40mg SQ Visit type - Emergency Visit Emergency Visit: Yes ED Registration Date: 09/02/19 Care time: The patient presented to the Emergency Department on the above date and was hospitalized for further evaluation of their emergent condition. - New Patient This patient is new to me today: Yes Date on this admission: 09/02/19 - Critical Care Critical Care patient: No - Discharge Referral Referred to [facility] Med P.C.: No
[2019-09-02] MEDS: LIDOCAINE PATCH REMOVAL MC SCH ×3 (18:39→23:10)
[2019-09-02] MEDS ORDERED: INSULIN (LEVEMIR) 100 UNITS/ML UNITS SQ SCH (22:00)
[2019-09-02] MEDS ORDERED: INSULIN (LEVEMIR) 100 UNITS/ML UNITS SQ ONE (22:58)
[2019-09-03] MEDS ORDERED: INSULIN SLIDING SCALE (NOVOLOG) 1 VIAL SQ ONE ×2 (05:30→12:20)
[2019-09-03] MEDS: INSULIN SLIDING SCALE (NOVOLOG) 1 VIAL SQ SCH ×4 (06:39→21:20)
[2019-09-03 07:45] LABS: HEMATOCRIT 40.5 % (32.4-45.2); HEMOGLOBIN 12.9 GM/dL (10.7-15.3); MCH 27.1 pg (25.7-33.7); MCHC 31.9 g/dl (32.0-36.0); MEAN CELL VOLUME 84.9 fl (80-96); MEAN PLT VOLUME 9.3 fl (7.5-11.1); PLATELET COUNT 297 K/MM3 (134-434); RBC 4.77 M/mm3 (3.60-5.2); RDW 14.6 % (11.6-15.6); WHITE BLOOD COUNT 12.6 K/mm3 (4.0-10.0)
[2019-09-03 08:09] LABS: ALBUMIN 3.6 g/dl (3.4-5.0); BILIRUBIN,TOTAL 0.6 mg/dL (0.2-1); BLOOD UREA NITROGEN 17.8 mg/dL (7-18); CALCIUM 9.4 mg/dL (8.5-10.1); CREATININE 0.7 mg/dL (0.55-1.3); POTASSIUM 4.3 mmol/L (3.5-5.1); TOT PROT 7.5 g/dl (6.4-8.2)
--- NOTE | 2019-09-03 09:19 | EKG ---
Test Reason : Blood Pressure : / mmHG Vent. Rate : 096 BPM Atrial Rate : 096 BPM P-R Int : 124 ms QRS Dur : 076 ms QT Int : 364 ms P-R-T Axes : 000 -21 -27 degrees QTc Int : 459 ms Lead misplacement LOW VOLTAGE QRS BORDERLINE ECG WHEN COMPARED WITH ECG OF 09-APR-2008 13:09, Repeat ECG Confirmed by Blane Linder ([id number]) on 09/03/2019 9:19:38 AM Referred By: Confirmed By:Blane Linder
[2019-09-03 09:42] VITALS: BMI 34.1
[2019-09-03] MEDS: ENOXAPARIN NA (PORCINE) 40 MG/0.4 ML DISP.SYRIN SQ SCH (11:40)
[2019-09-03] MEDS: POLYETHYLENE GLYCOL 3350 119 GM BTL PO SCH (11:40)
[2019-09-03] MEDS: DOCUSATE SODIUM 100 MG CAPSULE (FP) PO SCH ×2 (11:41→21:20)
[2019-09-03] MEDS: CEFTRIAXONE 1 GM in DEXTROSE 5%-WATER - 50 ML IVPB SCH ×2 (14:29→14:30)
[2019-09-03] MEDS ORDERED: ACETAMINOPHEN 325 MG TABLET (FP) PO PRN (14:35)
--- NOTE | 2019-09-03 14:36 | PN ---
Physical Exam: SUBJECTIVE: Patient seen and examined at bedside this morning. 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 Denies fevers, chills, headache, dizziness, chest pain, SOB. OBJECTIVE: Vital Signs Temperature 98.0 F 09/03/19 09:42 Pulse Rate 80 09/03/19 09:42 Respiratory Rate 20 09/03/19 09:42 Blood Pressure 111/72 09/03/19 09:42 O2 Sat by Pulse Oximetry (%) 97 09/03/19 09:42 GENERAL: The patient is awake, alert, and fully oriented, in no acute distress. HEAD: Normal with no signs of trauma. EYES:PERRLA, EOMI, sclera anicteric, conjunctiva clear. No ptosis. ENT: moist mucous membranes. NECK: Trachea midline, full range of motion, supple. LUNGS: Breath sounds equal, clear to auscultation bilaterally HEART: Regular rate and rhythm, S1, S2 ABDOMEN: Soft, nontender, nondistended, normoactive bowel sounds EXTREMITIES: 2+ pulses, warm, well-perfused, no edema. NEUROLOGICAL: Cranial nerves II through XII grossly intact. Normal speech. RUE: sensation decreased in right hand, decreased hand circuit breaker assembler. B/L: sensation intact, motor strength 4/5 b/l limited by low back pain PSYCH: Normal mood, normal affect. SKIN: Warm, dry, normal turgor. Laboratory Results - last 24 hr 09/02/19 09/02/19 09/02/19 07:45 17:41 23:04 WBC RBC Hgb Hct MCV MCH MCHC RDW Plt Count MPV Sodium Potassium Chloride Carbon Dioxide Anion Gap BUN Creatinine Est GFR (CKD-EPI)AfAm Est GFR (CKD-EPI)NonAf POC Glucometer 227 256 Random Glucose Hemoglobin A1c % Calcium Total Bilirubin AST ALT Alkaline Phosphatase Total Protein Albumin COVID-19 (JOSIE) Not detected 09/03/19 09/03/19 09/03/19 06:29 07:10 07:10 WBC 12.6 H RBC 4.77 Hgb 12.9 Hct 40.5 MCV 84.9 MCH 27.1 MCHC 31.9 L RDW 14.6 Plt Count 297 MPV 9.3 Sodium 137 Potassium 4.3 Chloride 103 Carbon Dioxide 25 Anion Gap 9 BUN 17.8 Creatinine 0.7 Est GFR (CKD-EPI)AfAm 113.84 Est GFR (CKD-EPI)NonAf 98.23 POC Glucometer 245 Random Glucose 236 H Hemoglobin A1c % Calcium 9.4 Total Bilirubin 0.6 AST 9 L ALT 34 Alkaline Phosphatase 68 Total Protein 7.5 Albumin 3.6 COVID-19 (JOSIE) 09/03/19 09/03/19 07:10 11:49 WBC RBC Hgb Hct MCV MCH MCHC RDW Plt Count MPV Sodium Potassium Chloride Carbon Dioxide Anion Gap BUN Creatinine Est GFR (CKD-EPI)AfAm Est GFR (CKD-EPI)NonAf POC Glucometer 255 Random Glucose Hemoglobin A1c % 9.1 H Calcium Total Bilirubin AST ALT Alkaline Phosphatase Total Protein Albumin COVID-19 (JOSIE) Active Medications Generic Name Dose Route Start Last Admin Trade Name Freq PRN Reason Stop Dose Admin Docusate Sodium 100 mg 09/02/19 10:00 09/03/19 11:41 Colace - PO 100 mg BID TIBURICO Administration Enoxaparin Sodium 40 mg 09/02/19 10:00 09/03/19 11:40 Lovenox - SQ 40 mg DAILY TIBURCIO Administration Ceftriaxone Sodium 1 gm/ 50 mls @ 100 mls/hr 09/03/19 14:00 Dextrose IVPB DAILY TIBURCIO Insulin Aspart 1 vial 09/02/19 07:00 09/03/19 12:37 Novolog Vial Sliding Scale - SQ 6 units ACHS TIBURCIO Administration Protocol Insulin Detemir 8 units 09/02/19 22:00 09/02/19 23:10 Levemir Vial SQ 8 units HS TIBURCIO Administration Ketorolac Tromethamine 15 mg 09/02/19 04:05 Toradol PO 09/07/19 05:59 Q6HPO PRN PAIN LEVEL 7 - 10 Miscellaneous 1 each 09/01/19 22:00 09/02/19 23:00 Lidoderm Patch Removal MC 1 each DAILY@2200 TIBURCIO Administration Polyethylene Glycol 17 gm 09/03/19 10:00 09/03/19 11:40 Miralax (For Daily Use) - PO 17 gm DAILY TIBURCIO Administration ASSESSMENT/PLAN: Patient is 53 year old female patient with past medical history that includes HTN, HLD, DM, herniated discs, and chronic back pain, who presented to the ED with right upper extremity pain, weakness, and numbness for 3 days. #RUE pain, weakness, and numbness -likely secondary to cervical radiculopathy. -CT scan showed moderate central narrowing at C3-4, C5-6 due to a disc hernia. -Neurology (Dr. Willard) consulted. -Neurosurgery (Dr. Dozier) consulted. -Lidocaine patch and tylenol prn for pain -Gabapentin 100mg daily -Physical Therapy #Leukocytosis -no clear source of infection at this time -CXR -Urinalysis with multiple epith cells, will repeat -monitor CBC #HTN -BP stable, not on any home medications -will continue to monitor #DM -on home Metformin, hold for now -A1c 9.1 -would need tighter control of blood sugar on discharge -Insulin sliding scale for now -will increase levemir to 8units bid -BGM ACHS #HLD -not on any medications -will order lipid panel #FEN -Not on any standing fluids -Electrolytes wnl, routine bmp monitoring -Diabetic/sodium restricted diet #Prophylaxis -Lovenox 40mg sq daily #Disposition -full code -med surg 4. DM - Novolog Sliding Scale DVT PPx - Lovenox 40mg SQ FULL CODE Visit type - Emergency Visit Emergency Visit: Yes ED Registration Date: 09/02/19 Care time: The patient presented to the Emergency Department on the above date and was hospitalized for further evaluation of their emergent condition. - New Patient This patient is new to me today: Yes Date on this admission: 09/03/19 - Critical Care Critical Care patient: No ATTENDING PHYSICIAN STATEMENT I saw and evaluated the patient. I reviewed the resident's note and discussed the case with the resident. I agree with the resident's findings and plan as documented. SUBJECTIVE: OBJECTIVE: ASSESSMENT AND PLAN:
--- NOTE | 2019-09-03 15:12 | PN ---
Progress Note (short form) - Note Progress Note: NEUROSURGERY CONSULT DICTATED Chart reviewed Pt examined H/o HTN, HLD, DM, herniated discs, and chronic back pain, c/o 3 days duration of acute onset right upper extremity pain, weakness, and numbness. PT fell about one week ago due to balance issue. It is hard for her to hold things or lift things with her right upper extremity. (entire right arm and hand) Shoulder abduction of her arm upwards causes shooting pain. Also LBP with numbness in her right leg but no symptoms of pain in her right leg. Friend at bedside. PE: AF, VSS General- unremarkable Hgb A1C- 9.1 CN- intact; Motor- R intrinsics, deltoids 4+, R EHL/TA 4/5; Sensation- decreased LT R foot and R hand; DTR- 1+ CT C spine: C3-4 small central disc protrusion; R C4-5 disc bulge; C5-6 DDD and osteophytes with mild stenosis CT LS spine: L4-5 and L5-S1 DDD Acute R UE radiculopathy; chronic R L5 radiculopathy DM not well controlled MRI of C spine to better assess soft tissue component (disc herniation at C3-4, C4-5 and C5-6) and degree of stenosis On neurontin already; could titrate up to 300 tid Could possibly benefit from a short pulse of steroids, though pt is diabetic, and hyperglycemia will likely worsen with it
--- NOTE | 2019-09-03 16:14 | PN ---
Teaching Attending Note Name of Resident: Oliva Smith ATTENDING PHYSICIAN STATEMENT I saw and evaluated the patient. I reviewed the resident's note and discussed the case with the resident. I agree with the resident's findings and plan as documented. SUBJECTIVE: Patient seen and examined at bedside, admitted for R hand ulnar radiculopathy, ?2/2 vertebral herniation. Will consult NSG. VSS. OBJECTIVE: GENERAL: The patient is awake, alert, and fully oriented, in no acute distress. C+ collar placed. HEENT NC/AT, neck supple in all directions, no C-spine tenderness, no facial trauma, equal sensation b/l on face Chest CTAB, no crackles or wheezing HEART: Regular rate and rhythm, S1, S2 without murmur, rub or gallop. ABDOMEN: obese, Soft, nontender, nondistended, normoactive bowel sounds, no guarding, no rebound, no hepatosplenomegaly, no masses. EXTREMITIES: 2+ pulses, warm, well-perfused, no edema. NEUROLOGICAL: Cranial nerves II through XII grossly intact. Normal speech, gait not observed. Notable R hand weakness with weak opposition of thumb and 5th digit (tests ulnar strength), parasthesia around medial aspect of 5th digit (ulnar distribution) Psych: normal affect. SKIN: Warm, dry, normal turgor, no rashes or lesions noted Vital Signs - 24 hr 09/02/19 09/02/19 09/03/19 20:00 23:00 04:27 Temperature 98.1 F 98.0 F Pulse Rate 101 H Pulse Rate [ 59 L Left Radial] Respiratory 20 18 Rate Blood Pressure 139/69 O2 Sat by Pulse 97 97 97 Oximetry (%) 09/03/19 09/03/19 09/03/19 04:33 09:42 14:10 Temperature 98.0 F 98.6 F Pulse Rate 80 85 Pulse Rate [ Left Radial] Respiratory 20 20 Rate Blood Pressure 103/63 111/72 130/83 O2 Sat by Pulse 97 97 Oximetry (%) Laboratory Results - last 24 hr 09/02/19 09/02/19 09/02/19 07:45 17:41 23:04 WBC RBC Hgb Hct MCV MCH MCHC RDW Plt Count MPV Sodium Potassium Chloride Carbon Dioxide Anion Gap BUN Creatinine Est GFR (CKD-EPI)AfAm Est GFR (CKD-EPI)NonAf POC Glucometer 227 256 Random Glucose Hemoglobin A1c % Calcium Total Bilirubin AST ALT Alkaline Phosphatase Total Protein Albumin COVID-19 (JOSIE) Not detected 09/03/19 09/03/19 09/03/19 06:29 07:10 07:10 WBC 12.6 H RBC 4.77 Hgb 12.9 Hct 40.5 MCV 84.9 MCH 27.1 MCHC 31.9 L RDW 14.6 Plt Count 297 MPV 9.3 Sodium 137 Potassium 4.3 Chloride 103 Carbon Dioxide 25 Anion Gap 9 BUN 17.8 Creatinine 0.7 Est GFR (CKD-EPI)AfAm 113.84 Est GFR (CKD-EPI)NonAf 98.23 POC Glucometer 245 Random Glucose 236 H Hemoglobin A1c % Calcium 9.4 Total Bilirubin 0.6 AST 9 L ALT 34 Alkaline Phosphatase 68 Total Protein 7.5 Albumin 3.6 COVID-19 (JOSIE) 09/03/19 09/03/19 07:10 11:49 WBC RBC Hgb Hct MCV MCH MCHC RDW Plt Count MPV Sodium Potassium Chloride Carbon Dioxide Anion Gap BUN Creatinine Est GFR (CKD-EPI)AfAm Est GFR (CKD-EPI)NonAf POC Glucometer 255 Random Glucose Hemoglobin A1c % 9.1 H Calcium Total Bilirubin AST ALT Alkaline Phosphatase Total Protein Albumin COVID-19 (JOSIE) Home Medications Medication Instructions Recorded Loratadine [Claritin -] 10 mg PO DAILY 08/26/14 metFORMIN HCL [Metformin ER 1 tab PO DAILY 08/26/14 Osmotic] Current Medications Generic Name Dose Route Start Last Admin Trade Name Freq PRN Reason Stop Dose Admin Acetaminophen 650 mg 09/03/19 14:35 Tylenol - PO Q6H PRN Fever Or Pain Docusate Sodium 100 mg 09/02/19 10:00 09/03/19 11:41 Colace - PO 100 mg BID TIBURCIO Administration Enoxaparin Sodium 40 mg 09/02/19 10:00 09/03/19 11:40 Lovenox - SQ 40 mg DAILY TIBURCIO Administration Gabapentin 100 mg 09/04/19 10:00 Neurontin - PO DAILY TIBURCIO Insulin Aspart 1 vial 09/02/19 07:00 09/03/19 12:37 Novolog Vial Sliding Scale - SQ 6 units ACHS TIBURCIO Administration Protocol Insulin Detemir 8 units 09/03/19 22:00 Levemir Vial SQ BID@0700,2200 [facility] Miscellaneous 1 each 09/01/19 22:00 09/02/19 23:00 Lidoderm Patch Removal MC 1 each DAILY@2200 TIBURCIO Administration Polyethylene Glycol 17 gm 09/03/19 10:00 09/03/19 11:40 Miralax (For Daily Use) - PO 17 gm DAILY TIBURCIO Administration ASSESSMENT AND PLAN: 53 F Ulnar radiculopathy R hand weakness with ulnar involvement Cervical herniation/radiculopathy/neuropathy Obesity HTN HLD T2DM with hyperglycemia Plan: NSG consult for cervical radiculopathy, C spine imaging (patient brought from outpatient) no signs of fracture, therefore may clear from C collar Neurontin for neuropathic pain Insulin for glucose control, will likely need this as outpatient as A1c high 9.1% Send TFTs/lipid panel Lovenox DVT ppx Neurology following
[2019-09-03 19:09] LABS: EPI CELLS 17 /uL (0-25.1); HYALINE CASTS 2 /uL (0-3.1); URINE APPEARANCE CLEAR; URINE BACTERIA 442 /uL (0-1359); URINE BILIRUBIN NEGATIVE (NEGATIVE); URINE COLOR YELLOW; URINE GLUCOSE (UA) NEGATIVE (NEGATIVE); URINE KETONE NEGATIVE (NEGATIVE); URINE LEUK ESTERASE TRACE (NEGATIVE); URINE NITRITE NEGATIVE (NEGATIVE); URINE PROTEIN NEGATIVE (NEGATIVE); URINE RBC 7 /uL (0-23.9); URINE UROBILINOGEN 0.2 mg/dL (0.2-1.0); URINE WBC 25 /uL (0-25.8)
--- NOTE | 2019-09-03 20:20 | CONSULT ---
Consult - text type - Consultation Consultation Note: NEUROLOGY CONSULTATION is greatly appreciated: Events reviewed, Patient examined. Daughter on telephone aides in translation. This 53 yo RH woman with h/o diabetes, on insulin has had episodic headaches since teenage years. +Catamenial. Induced by poor sleep. Can awaken her from sleep or be present in the morning upon awakening. Begin over the occipital region and develop into right hemicranial or holocranial throbbing headaches with photophobia, phonophobia and kinesiophobia. +FH of frequent headaches in her daughter. Chronically poor sleep associated with numbness, tingling and pain in both legs, especially thighs. Can't find a comfortable position. Always moving. Multiple awakenings. Chronic LBP also worse at night.Daughter is similarly affected by nocturnal leg pains and insomnia. Now admitted after 5 days of numbness and crawling sensations over the right volar forearm, wrist and hand "only when lifting things. + neck pain. "A little better now." MRI of C-Spine (reviewed): Normal alignment. Broadbased C5C6 HNP with sl posterior cord displacement but no cord compression. Smaller C3C4 bulge. CT of head (reviewed): Normal CT of cervical, thoracic and LS spines: Bulges at C34, C56, L45 and L5S1 without canal stenosis or cord compression. EXAM: Normal neck ROM. Neg SLR > 90 B/L. Obese. In NAD NEURO: MS/speech: Normal CN II-XII: Normal Motor: Normal strength, tone and bulk. Reflexes all normal and symmetrical. Toes downgoing Coord: No FTN dystaxia Sensory: Normal in all distributions. Romberg Neg Gait: Normal IMP: Entirely normal neurological exam. 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 Begin Pramipexole 0.25 mg HS x 3 days then BID after breakfast and dinner. Neurology follow up as out patient. Thank you very much, Robby Willard MD
[2019-09-03] MEDS: INSULIN (LEVEMIR) 100 UNITS/ML UNITS SQ SCH (21:19)
[2019-09-03] MEDS: LIDOCAINE PATCH REMOVAL MC SCH (21:20)
[2019-09-03] MEDS: TOPIRAMATE 25 MG TABLET PO SCH (21:41)
[2019-09-03] MEDS: PRAMIPEXOLE DIHYDROCHLORIDE 0.25 MG TABLET PO SCH (21:41)
[2019-09-04] MEDS: INSULIN (LEVEMIR) 100 UNITS/ML UNITS SQ SCH (06:15)
[2019-09-04] MEDS: INSULIN SLIDING SCALE (NOVOLOG) 1 VIAL SQ SCH ×2 (06:15→12:04)
[2019-09-04 07:53] LABS: BASO % 0.2 % (0-2.0); HEMATOCRIT 40.9 % (32.4-45.2); HEMOGLOBIN 13.1 GM/dL (10.7-15.3); LYMPH % 41.6 % (8-40); MCH 27.2 pg (25.7-33.7); MCHC 32.1 g/dl (32.0-36.0); MEAN CELL VOLUME 84.8 fl (80-96); MEAN PLT VOLUME 9.2 fl (7.5-11.1); MONO % 7.1 % (3.8-10.2); NEUT % 50.1 % (42.8-82.8); PLATELET COUNT 294 K/MM3 (134-434); RBC 4.82 M/mm3 (3.60-5.2); RDW 14.6 % (11.6-15.6)
[2019-09-04 08:26] LABS: BLOOD UREA NITROGEN 16.4 mg/dL (7-18); CALCIUM 9.2 mg/dL (8.5-10.1); CREATININE 0.7 mg/dL (0.55-1.3); MAGNESIUM 2.4 mg/dL (1.8-2.4); POTASSIUM 4.1 mmol/L (3.5-5.1)
--- NOTE | 2019-09-04 08:35 | PN ---
Progress Note (short form) - Note Progress Note: NEUROSURGERY H/o HTN, HLD, DM, herniated discs, and chronic back pain, c/o 3 days duration of acute onset right upper extremity pain, weakness, and numbness. PT fell about one week ago due to balance issue. It is hard for her to hold things or lift things with her right upper extremity. (entire right arm and hand) Shoulder abduction of her arm upwards causes shooting pain. Also LBP with numbness in her right leg but no symptoms of pain in her right leg. R arm pain better overnight. Seen by neurology. PE: AF, VSS General- unremarkable Hgb A1C- 9.1 CN- intact; Motor- R intrinsics, deltoids 4+, R EHL/TA 4/5; Sensation- decreased LT R foot and R hand; DTR- 1+ CT C spine: C3-4 small central disc protrusion; R C4-5 disc bulge; C5-6 DDD and osteophytes with mild stenosis CT LS spine: L4-5 and L5-S1 DDD C spine MRI- multilevel DDD; central and L > R C5-6 paracentral disc protrusion with no cord impingement Acute R C5-6 radiculopathy; chronic R L5 radiculopathy Cont medical tx, avoid cervical spine manipulation DM not well controlled On neurontin already; could titrate up to 300 mg tid Could possibly benefit from a short pulse of steroids, though pt is diabetic, and hyperglycemia will likely worsen with it
[2019-09-04] MEDS ORDERED: GABAPENTIN 100 MG CAPSULE PO SCH (10:00)
[2019-09-04] MEDS: ENOXAPARIN NA (PORCINE) 40 MG/0.4 ML DISP.SYRIN SQ SCH (10:11)
[2019-09-04] MEDS: DOCUSATE SODIUM 100 MG CAPSULE (FP) PO SCH (10:11)
[2019-09-04] MEDS: TOPIRAMATE 25 MG TABLET PO SCH (10:12)
[2019-09-04] MEDS: PRAMIPEXOLE DIHYDROCHLORIDE 0.25 MG TABLET PO SCH (10:12)
[2019-09-04 10:35] VITALS: BP 124/68; PULSE 81; TEMP 98.2
[2019-09-04] MEDS: POLYETHYLENE GLYCOL 3350 119 GM BTL PO SCH (10:43)
--- NOTE | 2019-09-04 13:49 | PN ---
Teaching Attending Note Name of Resident: Oliva Smith ATTENDING PHYSICIAN STATEMENT I saw and evaluated the patient. I reviewed the resident's note and discussed the case with the resident. I agree with the resident's findings and plan as documented. SUBJECTIVE: seen and examined at bedside, stated her pain is less OBJECTIVE: Last Vital Signs Temp Pulse Resp BP Pulse Ox 98.2 F 81 20 124/68 98 09/04/19 09:00 09/04/19 09:00 09/04/19 09:00 09/04/19 09:00 09/04/19 09:00 CBCD WBC 10.0 K/mm3 (4.0-10.0) 09/04/19 07:03 RBC 4.82 M/mm3 (3.60-5.2) 09/04/19 07:03 Hgb 13.1 GM/dL (10.7-15.3) 09/04/19 07:03 Hct 40.9 % (32.4-45.2) 09/04/19 07:03 MCV 84.8 fl (80-96) 09/04/19 07:03 MCHC 32.1 g/dl (32.0-36.0) 09/04/19 07:03 RDW 14.6 % (11.6-15.6) 09/04/19 07:03 Plt Count 294 K/MM3 (134-434) 09/04/19 07:03 MPV 9.2 fl (7.5-11.1) 09/04/19 07:03 CMP Sodium 139 mmol/L (136-145) 09/04/19 07:03 Potassium 4.1 mmol/L (3.5-5.1) 09/04/19 07:03 Chloride 102 mmol/L (98-107) 09/04/19 07:03 Carbon Dioxide 30 mmol/L (21-32) 09/04/19 07:03 Anion Gap 6 MMOL/L (8-16) L 09/04/19 07:03 BUN 16.4 mg/dL (7-18) 09/04/19 07:03 Creatinine 0.7 mg/dL (0.55-1.3) 09/04/19 07:03 Calcium 9.2 mg/dL (8.5-10.1) 09/04/19 07:03 Total Bilirubin 0.6 mg/dL (0.2-1) 09/03/19 07:10 AST 9 U/L (15-37) L 09/03/19 07:10 ALT 34 U/L (13-61) 09/03/19 07:10 Alkaline Phosphatase 68 U/L (45-117) 09/03/19 07:10 Total Protein 7.5 g/dl (6.4-8.2) 09/03/19 07:10 Albumin 3.6 g/dl (3.4-5.0) 09/03/19 07:10 GENERAL: The patient is awake, alert, and fully oriented, in no acute distress. HEAD: Normal with no signs of trauma. EYES: PERRL, extraocular movements intact, sclera anicteric, conjunctiva clear. No ptosis. ENT: Ears normal, nares patent, oropharynx clear without exudates, moist mucous membranes. NECK: Trachea midline, full range of motion, supple. LUNGS: Breath sounds equal, clear to auscultation bilaterally, no wheezes, no crackles, no accessory muscle use. HEART: Regular rate and rhythm, S1, S2 without murmur, rub or gallop. ABDOMEN: obese, Soft, nontender, nondistended, normoactive bowel sounds, no guarding, no rebound, no hepatosplenomegaly, no masses. EXTREMITIES: 2+ pulses, warm, well-perfused, no edema. NEUROLOGICAL: Cranial nerves II through XII grossly intact. Normal speech, gait not observed. Rt hand weakness of infrastructure technician, phalen and Tinel maneuver positive. LE 5/5 strength PSYCH: Normal mood, normal affect. SKIN: Warm, dry, normal turgor, no rashes or lesions noted ASSESSMENT AND PLAN: # Right hand, weakness, and numbness -causes: cervical radiculopathy vs carpal tunnel syndrome - CT scan showed moderate central narrowing at C3-4, C5-6 due to a disc hernia. - MRI herniated c5-6, and C6-7 - neurology and neurosurgery Consults appreciated - Physical Therapy, wrist splinting, increase neurontin to 300qd - discharge planning for outpatient follow up with neurology #Obesity - BMI > 30 - Consult Corporate Travel Consultant, qualifies for briatric surgery # DM
--- NOTE | 2019-09-04 17:05 | DS ---
Physical Exam: SUBJECTIVE: Patient seen and examined. Reported improvement of right hand weakness and pain. OBJECTIVE: Vital Signs Period Temp Pulse Resp BP Sys/Moreno Pulse Ox Last 24 Hr 98.2 F-98.6 F 79-86 20-20 100-144/51-80 98-98 PHYSICAL EXAM GENERAL: The patient is awake, alert, and fully oriented, in no acute distress. HEAD: Normal with no signs of trauma. EYES:PERRLA, EOMI, sclera anicteric, conjunctiva clear. No ptosis. ENT: moist mucous membranes. NECK: Trachea midline, full range of motion, supple. LUNGS: Breath sounds equal, clear to auscultation bilaterally HEART: Regular rate and rhythm, S1, S2 ABDOMEN: Soft, nontender, nondistended, normoactive bowel sounds EXTREMITIES: 2+ pulses, warm, well-perfused, no edema. NEUROLOGICAL: Cranial nerves II through XII grossly intact. Normal speech. PSYCH: Normal mood, normal affect. SKIN: Warm, dry, normal turgor. LABS Laboratory Results - last 24 hr 09/03/19 09/03/19 09/04/19 18:10 21:19 06:07 WBC RBC Hgb Hct MCV MCH MCHC RDW Plt Count MPV Absolute Neuts (auto) Neutrophils % Lymphocytes % Monocytes % Eosinophils % Basophils % Nucleated RBC % Sodium Potassium Chloride Carbon Dioxide Anion Gap BUN Creatinine Est GFR (CKD-EPI)AfAm Est GFR (CKD-EPI)NonAf POC Glucometer 162 188 Random Glucose Calcium Magnesium Triglycerides Cholesterol Total LDL Cholesterol HDL Cholesterol Urine Color Yellow Urine Appearance Clear Urine pH 5.0 Ur Specific [place] 1.009 L Urine Protein Negative Urine Glucose (UA) Negative Urine Ketones Negative Urine Blood Negative Urine Nitrite Negative Urine Bilirubin Negative Urine Urobilinogen 0.2 Ur Leukocyte Esterase Trace Urine WBC (Auto) 25 Urine RBC (Auto) 7 Urine Casts (Auto) 2 U Epithel Cells (Auto) 17 Urine Bacteria (Auto) 442 09/04/19 09/04/19 09/04/19 07:03 07:03 10:52 WBC 10.0 RBC 4.82 Hgb 13.1 Hct 40.9 MCV 84.8 MCH 27.2 MCHC 32.1 RDW 14.6 Plt Count 294 MPV 9.2 Absolute Neuts (auto) 5.0 Neutrophils % 50.1 D Lymphocytes % 41.6 H D Monocytes % 7.1 Eosinophils % 1.0 Basophils % 0.2 Nucleated RBC % 0 Sodium 139 Potassium 4.1 Chloride 102 Carbon Dioxide 30 Anion Gap 6 L BUN 16.4 Creatinine 0.7 Est GFR (CKD-EPI)AfAm 113.84 Est GFR (CKD-EPI)NonAf 98.23 POC Glucometer 207 Random Glucose 175 H Calcium 9.2 Magnesium 2.4 Triglycerides 158 H Cholesterol 242 H Total LDL Cholesterol 152 H HDL Cholesterol 54 Urine Color Urine Appearance Urine pH Ur Specific [place] Urine Protein Urine Glucose (UA) Urine Ketones Urine Blood Urine Nitrite Urine Bilirubin Urine Urobilinogen Ur Leukocyte Esterase Urine WBC (Auto) Urine RBC (Auto) Urine Casts (Auto) U Epithel Cells (Auto) Urine Bacteria (Auto) HOSPITAL COURSE: Date of Admission:09/02/19 Date of Discharge: 09/04/19 Patient is 53 year old female patient with past medical history that includes HTN, HLD, DM, herniated discs, and chronic back pain, who presented to the ED with right upper extremity pain, weakness, and numbness for 3 days. #RUE pain, weakness, and numbness -CT scan showed moderate central narrowing at C3-4, C5-6 due to a disc hernia. -C spine MRI- multilevel DDD; central and L > R C5-6 paracentral disc protrusion with no cord impingement -Neurology (Dr. Willard) consulted. Recs appreciated. -Entirely normal neurological exam. No evidence for cervical radiculopathy -Migraine Headaches, Restless Limbs Syndrome (Chronic in legs, recent spread to the right arm.) -Begin Topiramate 25 mg BID x 3 days then 50 mg BID for migraine prophylaxis and weight loss. -Begin Pramipexole 0.25 mg HS x 3 days then BID after breakfast and dinner. -Neurosurgery (Dr. Dozier) consulted. Recs appreciated. -Gabapentin 100mg bid. Can titrate up to 300mg tid -Cont medical tx, avoid cervical spine manipulation -Physical Therapy. Will dc with rolling walker. #Leukocytosis -no clear source of infection at this time -CXR -Urinalysis with multiple epith cells -monitor CBC #HTN -BP stable, not on any home medications -will continue to monitor #DM -on home Metformin, hold for now -A1c 9.1 -would need tighter control of blood sugar on discharge -Insulin sliding scale for now -will increase levemir to 8units bid -BGM ACHS Minutes to complete discharge: 38 Discharge Summary Problems reviewed: Yes Reason For Visit: SPINAL STENOSIS,WEAKNESS OF UPPER EXTREMETIES Condition: Stable - Instructions Diet, Activity, Other Instructions: Your visit You were admitted to the hospital because you had right arm pain. You had an MRI done of your neck which showed herniated discs. You were evaluated by the neurologist and the neurosurgeon. You were given medications, as prescribed below, to help with your symptoms. We have given you a referral for Dr. Willard and Dr. Dozier to follow up in their clinics, as well as a referral for physical therapy. You were also noted to have elevated blood sugar while here in the hospital. We will increase your dose of Metformin to twice a day. Please follow up with your primary care doctor in 1 week for further management of your blood sugar. Medications Please take the following medications as prescribed below: 1. Gabapentin 100mg twice a day. 2. Topiramate 25mg twice a day for 3 days, then 50mg twice a day 3. Pramipexole 0.25mg once a day at bedtime for 3 days, then twice a day after breakfast and dinner. 4. Metformin 500mg twice a day. Please continue your other home medications. Follow up Please follow up with your primary care doctor in 1 week. Please follow up with the neurologist (Dr. Willard) in 1-2 weeks. Please call the office to schedule an appointment Please follow up with neurosurgery (Dr. Dozier) in 1-2 weeks. Please call the office to schedule an appointment. Additional info Please call 911 or go to the ED if with any worsening fevers, chills, headache, dizziness, chest pain, shortness of breath, belly pain, or any new concerns noted. Referrals: Robby Willard MD [Staff Physician] - Prabhakar Dozier MD [Staff Physician] - Ela Hernandez [Primary Care Provider] - Disposition: HOME - Home Medications Comprehensive Discharge Medication List: Ambulatory Orders Loratadine [Claritin -] 10 mg PO DAILY 08/26/14 Gabapentin [Neurontin -] 100 mg PO BID #60 capsule 09/04/19 Metformin HCl [Glucophage] 500 mg PO BID #10 tablet 09/04/19 Pramipexole Dihydrochloride [Mirapex -] 0.25 mg PO BID #60 tablet 09/04/19 Topiramate [Topamax -] 25 mg PO BID #60 tablet 09/04/19 Walker [Ultra-Light Rollator] 1 each [facility] DAILY #1 each 09/04/19 This patient is new to me today: No Emergency Visit: Yes ED Registration Date: 09/02/19 Care time: The patient presented to the Emergency Department on the above date and was hospitalized for further evaluation of their emergent condition. Critical Care patient: No - Discharge Referral Referred to [facility] No ATTENDING PHYSICIAN STATEMENT I saw and evaluated the patient. I reviewed the resident's note and discussed the case with the resident. I agree with the resident's findings and plan as documented. SUBJECTIVE: OBJECTIVE: ASSESSMENT AND PLAN:
--- NOTE | 2019-09-05 09:04 | CONS ---
DATE OF CONSULTATION: 09/03/2019 CHIEF COMPLAINT: Acute right upper extremity radiculopathy. REQUESTING PHYSICIAN: Dr. Chilel HISTORY OF PRESENT ILLNESS: The patient is a 53-year-old female with history of diabetes, hypertension, hypercholesterolemia, lumbar disk disease with chronic low back pain, who complains of 3-day history of acute onset right upper extremity pain. Her pain radiated down to her right shoulder, arm, and the forearm. She also has numbness and tingling and weakness of the right hand. She fell about 1 week at home due to balance issues. It is difficult for her to hold things and lift things with her right upper extremity and especially right hand. Her right arm on abduction causes shooting pain down to the arm. She also complains of chronic lower back pain with right-sided sciatica. She does have weakness and numbness of both her feet, but that is likely related to her diabetes. She has chronic weakness on right foot dorsiflexion. She denies bowel, bladder incontinence. PAST MEDICAL HISTORY: She has no fever or chills or any cough. Past medical history is significant for diabetes, hypertension, hypercholesterolemia, lumbar disk disease, sciatica. CURRENT MEDICATIONS: Include Lidoderm patch, Tylenol, Lovenox, Neurontin, Colace, MiraLAX, insulin, and Levemir. ALLERGIES: No known drug allergies. FAMILY HISTORY: Noncontributory. SOCIAL HISTORY: She is a nonsmoker. Only drinks alcohol socially. She lives at home. She does not work. REVIEW OF SYSTEMS: Otherwise negative for other major constitutional, head/neck, cardiovascular, pulmonary, gastrointestinal, genitourinary, endocrinologic, neurologic, or psychological problems except for the above. PHYSICAL EXAMINATION: General: The patient is awake and alert. Her friend is at bedside. Vital Signs: Temperature is 98.6, blood pressure is 130/83 with pulse rate 85, O2 saturation 97% on room air. HEENT: Normocephalic, atraumatic, anicteric. Neck: Shows right-sided paraspinal muscle spasm. Tenderness to palpation of right trapezius. Coronary: Demonstrates a regular rhythm. Lungs: Clear bilaterally. Abdomen: Benign. Extremities: No signs of DVT. Neurologic: Cranial nerves examination intact 2-12. Motor examination shows 5/5 strength except right deltoid and the right hand intrinsic muscles which have 4+ and right foot dorsiflexion which is 4/5. Sensory examination demonstrates numbness in both of her feet, pinprick, and light touch. She also has slight numbness of her right hand. Deep tendon reflexes are 1+ throughout. There is no pathological long-tract sign. Gait is not tested for safety reasons. LABORATORY EXAMINATION: Shows white blood cell count 12.6, hemoglobin 12.9. Sodium is 137, BUN is 18 and creatinine is 0.7. Hemoglobin A1c is 9.1. Urinalysis shows 2+ leukocyte esterase with 727 WBCs and 13 RBCs. COVID serology is negative. CT scan of the cervical spine demonstrated small central disk protrusion at C3-4. There is also a possible right-sided C5-6 paracentral disk protrusion as well as chronic protrusion with osteophytes at C5-6, there is central hypertrophy at multiple levels. CT scan of the lumbar spine demonstrated broad based disk bulge at L4-5 and small central disk bulge at L5-S1. There is no severe stenosis at any level. CT scan of thoracic spine demonstrated no acute disk herniation, no significant stenosis or fracture. IMPRESSION: 1. Right upper extremity radiculopathy, rule out true disk herniation. 2. Lumbar disk disease L4-L5 and L5-S1. 3. Diabetes. 4. Hypertension. RECOMMENDATION: Patient presents with 3+ days history including right-sided neck pain and pain radiating down the right arm and forearm. She has weakness, numbness, and tingling in her right arm in addition to pain. She also has somewhat decreased dexterity. She does have baseline diabetes with likely diabetic peripheral neuropathy. Her hemoglobin A1c is 9.1, which is very high. Better control with diabetes should be considered. The patient could possibly benefit from a short pulse of steroids, but that would make her hyperglycemia worse, unfortunately. She could be continued on Neurontin and a course of physical therapy could be considered. An MRI of cervical spine is recommended to rule out right-sided disk herniation at C4-5 and C5-6. The patient is already on gabapentin which could be increased up to 300 mg 3 times a day as maintenance dose. Continued medical treatment is recommended. Further recommendations could be made after cervical spine MRI examination. The pros and cons of treatment approaches were discussed and all questions were answered at bedside. ANTONIA MARES M.D. [place]/[id number] MTDD
== END 2019-09-04 13:54 | disposition home or self-care (01) | DRG 48 ==
LOC: JER 21:03 → JERBED 09-02 01:22 → J6WEST-2 09-03 08:45
PROVIDERS: ADMIT Internal Medicine; ATTEND Student in an Organized Health Care Education/Training Program
DX: M54.12 Radiculopathy, cervical region (principal); M50.20 Other cervical disc displacement, unspecified cervical region; G43.909 Migraine, unspecified, not intractable, without status migrainosus; E11.65 Type 2 diabetes mellitus with hyperglycemia; Z68.34 Body mass index [BMI] 34.0-34.9, adult; M79.601 Pain in right arm; E66.9 Obesity, unspecified; G25.81 Restless legs syndrome; I10 Essential (primary) hypertension; D72.829 Elevated white blood cell count, unspecified; E78.5 Hyperlipidemia, unspecified
CPT/HCPCS: 36415; 70450-TC; 71045-TC-FY; 71046-TC-FY; 72125-TC; 72128-TC; 72131-TC; 72141-TC; 80048; 80053; 80061; 81003; 82550; 82565; 82962; 83036; 83721; 83735; 84100; 84156; 84443; 84484; 85025; 85027; 93005; 93010; 97116-GP; 97162-GP; 99285-25; J0131; J1100; U0003

== ENCOUNTER 2022-03-18 15:54 | Emergency (ER) | payer OTHER ==
[2022-03-18 16:09] VITALS: BP 131/77; PULSE 97; RESP 16; TEMP 98.3; BMI 29.9
[2022-03-18] MEDS ORDERED: ACETAMINOPHEN 500 MG TABLET (FP) PO ONE (16:59)
[2022-03-18] MEDS ORDERED: LIDOCAINE 5% TOPICAL PATCH TP ONE (16:59)
[2022-03-18] MEDS ORDERED: LIDOCAINE 5% TOPICAL PATCH ONE (17:04)
[2022-03-18] MEDS ORDERED: ACETAMINOPHEN 500 MG TABLET (FP) ONE (17:05)
[2022-03-18] MEDS ORDERED: LIDOCAINE PATCH REMOVAL MC SCH (22:00)
== END 2022-03-18 18:24 | disposition home or self-care (01) ==
LOC: JERFT 15:54
DX: M54.2 Cervicalgia (principal); M54.89 Other dorsalgia
CPT/HCPCS: 99283-25